=== PATIENT | male | born 1945 | race Caucasian/White ===

== ENCOUNTER → 2024-03-08 | Outpatient (CLI) | payer MEDICARE | END | disposition home or self-care (01) | LOC: SHCH 10:52 | PROVIDERS: ATTEND Internal Medicine Cardiovascular Disease | DX: I87.2 Venous insufficiency (chronic) (peripheral) (principal) | CPT/HCPCS: 93970 ==

== ENCOUNTER → 2024-07-15 | Outpatient (CLI) | payer MEDICARE ==
--- NOTE | 2024-07-19 08:09 | HMCSR ---
APPROVED REPORT Laterality: Bilateral Indications PVD VELOCITY AND DOPPLER WAVEFORM ANALYSIS TELEPHOTO ENGINEER (R) 166.8cm/sec, Biphasic, TELEPHOTO ENGINEER (L) 162.9cm/sec, Biphasic, TELEPHOTO ENGINEER Prox. (R) cm/sec, TELEPHOTO ENGINEER Prox. (L) cm/sec, Prof Fem Art. (R) 453.5cm/sec, Monophasic, Severe > 75%Prof Fem Art. (L) 197.4cm/sec, Biphasic, Mo derate > 50% Fem Art Prox. (R) 171.3cm/sec, Biphasic, Fem Art Prox. (L) 320.4cm/sec, Biphasic, Severe > 75% Fem Art Mid. (R) 236.3cm/sec, Biphasic, Moderate > 50%Fem Art Mid. (L) 166.6cm/sec, Biphasic, Fem Art Dist (R) 140.8cm/sec, Biphasic, Fem Art Dist. (L) 91.5cm/sec, Biphasic, Pop Art(AK) (R) 152.0cm/sec, Biphasic, Pop Art (AK) (L) 80.8cm/sec, Biphasic, Pop Art (Fossa)(R) 105.0cm/sec, Biphasic, Pop Art (Fossa) (L) 78.0cm/sec, Biphasic, Pop Art(BK) (R) 102.1cm/sec, Biphasic, Pop Art (BK) (L) 138.0cm/sec, Biphasic, IN HOME SALES CONSULTANT Prox. (R) 55.2cm/sec, Biphasic, IN HOME SALES CONSULTANT Prox. (L) 133.9cm/sec, Biphasic, IN HOME SALES CONSULTANT Mid. (R) 81.0cm/sec, Biphasic, IN HOME SALES CONSULTANT Mid. (L) 56.0cm/sec, Biphasic, IN HOME SALES CONSULTANT Dist. (R) 57.3cm/sec, Biphasic, IN HOME SALES CONSULTANT Dist. (L) 57.1cm/sec, Biphasic, Per Art Prox. (R) 33.8cm/sec, Biphasic, Per Art Prox. (L) 67.7cm/sec, Biphasic, Per Art Mid. (R) 35.0cm/sec, Biphasic, Per Art Mid. (L) 51.0cm/sec, Biphasic, Per Art Dist. (R) 53.8cm/sec, Biphasic, Per Art Dist. (L) 45.7cm/sec, Biphasic, JORJE Prox. (R) 92.4cm/sec, Biphasic, JORJE Prox. (L) 75.0cm/sec, Biphasic, JORJE Mid. (R) 57.0cm/sec, Biphasic JORJE Mid. (L) 64.0cm/sec, Biphasic, JORJE Dist. (R) 69.1cm/sec, Biphasic, JORJE Dist. (L) 65.3cm/sec, Biphasic, Technologist Impression Diffuse atherosclerosis throughout the bilateral lower extremities. Evdience of >75% stenosis in the Right DFA and Left proximal SFA. Evidence of >50% stenosis in the Right mid SFA and Left DFA. 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
== END | disposition home or self-care (01) ==
LOC: SHCH 09:13
PROVIDERS: ATTEND Internal Medicine Cardiovascular Disease
DX: I87.2 Venous insufficiency (chronic) (peripheral) (principal); I70.203 Unspecified atherosclerosis of native arteries of extremities, bilateral legs
CPT/HCPCS: 93925